=== PATIENT | female | born 1965 | race Caucasian/White ===

== ENCOUNTER 2017-04-12 19:08 | Emergency (ER) | payer OTHER ==
[~2017-04-12] VITALS: Ht 177.8 cm; Wt 88.9 kg
[2017-04-12 19:13] VITALS: BP 122/75
[2017-04-12] MEDS ORDERED: LIDOCAINE 1%, 20ML SQ ONE (20:00)
[2017-04-12] MEDS ORDERED: DIPH,PERTUSS(ACELL),TET VAC/PF 0.5 ML IM-VACC ONE ×2 (20:00→20:11)
[2017-04-12] MEDS ORDERED: LIDOCAINE 1%, 20ML ONE ×3 (20:11)
[2017-04-12] MEDS ORDERED: BACITRACIN ZINC OINT 500U/GM, 0.9 GM ONE (21:20)
== END 2017-04-12 21:29 | disposition home or self-care (01) ==
LOC: ED 20:50
DX: S61.217A Laceration without foreign body of left little finger without damage to nail, initial encounter (principal); W25.XXXA Contact with sharp glass, initial encounter; Y93.89 Activity, other specified; Y92.009 Unspecified place in unspecified non-institutional (private) residence as the place of occurrence of the external cause; Y99.9 Unspecified external cause status
CPT/HCPCS: 12001; 90471; 90715; 99283; J3490